=== PATIENT | male | born 1975 | race African-American/Black ===

== ENCOUNTER 2017-03-03 12:26 | Emergency (ER) | payer OTHER ==
[2017-03-03 12:29] VITALS: BP 134/77; PULSE 67; TEMP 98.3; BMI 31.5
[2017-03-03] MEDS ORDERED: diphenhydrAMINE HCL 25 MG CAPSULE (FP) PO ONE ×2 (12:49→12:54)
--- NOTE | 2017-03-03 12:54 | PDOC ---
History of Present Illness - General Chief Complaint: Rash Stated Complaint: BUMPS ON LT HAND Time Seen by Provider: 03/03/17 12:41 History Source: Patient Exam Limitations: No Limitations - History of Present Illness Initial Comments: 03/03/17 12:58 This is a 41-yr-old man with no significant past medical who presents today with pruritic rash on bilateral upper extremities since awaking this morning. he denies fevers, chills, pain or shortness of breath. he states he had an egg for breakfast and used his significant other's shampoo last night during shower. He denies changes in deodorant, soap, cologne, laundry detergent or fabric softeners. Timing/Duration: reports: this morning Severity: Yes: moderate Location: reports: extremities (bilateral upper) Respiratory Risk Factors: reports: no cause identified Associated Symptoms: reports: change in skin texture, rash. denies: fever, nasal congestion, petechiae, sore throat Past History - Past Medical History Allergies/Adverse Reactions: Allergies Allergy/AdvReac Type Severity Reaction Status Date / Time No Known Allergies Allergy Verified 03/03/17 12:29 Home Medications: Ambulatory Orders NK [No Known Home Medication] 03/03/17 Other medical history: NONE - Psycho/Social/Smoking Cessation Hx Anxiety: No Suicidal Ideation: No Smoking Status: No Smoking History: Never smoked Have you smoked in the past 12 months: No Number of Cigarettes Smoked Daily: 0 Hx Alcohol Use: Yes (SOCIAL) Drug/Substance Use Hx: No Substance Use Type: None Review of Systems - Review of Systems Able to Perform ROS?: Yes Is the patient limited Chinese proficient: No Constitutional: No: Symptoms Reported HEENTM: No: Symptoms Reported Respiratory: No: Symptoms reported Cardiac (ROS): No: Symptoms Reported ABD/GI: No: Symptoms Reported : No: Symptoms Reported Musculoskeletal: No: Symptoms Reported Integumentary: Yes: Rash Neurological: No: Symptoms reported *Physical Exam - Vital Signs Last Vital Signs Temp Pulse Resp BP Pulse Ox 98.3 F 67 18 134/77 99 03/03/17 12:26 03/03/17 12:26 03/03/17 12:26 03/03/17 12:26 03/03/17 12:26 - Physical Exam General Appearance: Yes: Appropriately Dressed. No: Apparent Distress HEENT: positive: EOMI, Normal ENT Inspection, Normal Voice Neck: positive: Trachea midline, Supple Respiratory/Chest: positive: Lungs Clear, Normal Breath Sounds. negative: Respiratory Distress, Accessory Muscle Use Cardiovascular: positive: Regular Rhythm, Regular Rate, S1, S2. negative: Edema , JVD, Murmur Gastrointestinal/Abdominal: positive: Normal Bowel Sounds, Soft. negative: Tender, Organomegaly Musculoskeletal: positive: Normal Inspection. negative: CVA Tenderness Extremity: positive: Normal Capillary Refill, Other (raised erythematous circular puritic lesions less than 0.5 centimeters in diameter covering bilateral from the antecubital extending through the hands. worse on dorsal surface of extremities. No lesions noted on palms.) Integumentary: positive: Rash (raised erythematous circular puritic lesions less than 0.5 centimeters in diameter covering bilateral from the antecubital extending through the hands. worse on dorsal surface of extremities. 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 he denies fevers, chills, pain or shortness of breath. he states he had an egg for breakfast and used his significant other's shampoo last night during shower. He denies changes in deodorant, soap, cologne, laundry detergent or fabric softeners. Likely from shampoo as he ate egg after onset of symptoms. Dx: contact dermatitis likely from change in shampoo. - benadryl 25mg now - discharge *DC/Admit/Observation/Transfer Diagnosis at time of Disposition: Contact dermatitis Qualifiers: Contact dermatitis type: irritant Contact dermatitis trigger: other chemical product Qualified Code(s): L24.5 - Irritant contact dermatitis due to other chemical products - Discharge Dispostion Disposition: HOME Condition at time of disposition: Stable Admit: No - Patient Instructions Printed Discharge Instructions: DI for Contact Dermatitis Additional Instructions: Apply hydrocortisone 1% cream to affected areas 3 times a day as needed. Take Benadryl as directed by appointment setter's instructions for itching as needed. Avoid using shampoo that is not your usual shampoo. Return to ER for any increased pain, worsening itching, fevers, cough or any other concerns. - Post Discharge Activity Work/School Note: Back to Work
== END 2017-03-03 13:24 | disposition home or self-care (01) ==
LOC: JER 12:26 → JERFT 12:26
DX: L24.5 Irritant contact dermatitis due to other chemical products (principal)
CPT/HCPCS: 99281-25

== ENCOUNTER 2017-03-05 08:54 | Emergency (ER) | payer OTHER ==
[2017-03-05 09:03] VITALS: BP 143/86; PULSE 66; TEMP 98.6; BMI 34.4
[2017-03-05] MEDS ORDERED: TRIAMCINOLONE ACET 40MG/1ML VIAL IM ONE (09:43)
--- NOTE | 2017-03-05 09:43 | PDOC ---
History of Present Illness - General Chief Complaint: Rash Stated Complaint: REVISIT Time Seen by Provider: 03/05/17 09:16 History Source: Patient Exam Limitations: No Limitations - History of Present Illness Initial Comments: 03/05/17 09:42 My chief complaint: Worsening rash on arms and hands History of present illness: This is a 41-yr-old man with no significant past medical who presents here today with worsening pruritic rash on bilateral upper extremities. nHe denies fevers, chills, pain or shortness of breath or difficulty breathing. He denies changes in deodorant, soap, cologne, laundry detergent or fabric softeners or medications. She was seen here on 03/03/2017 and was instructed to take Benadryl for itchiness and to apply hydrocortisone cream to rash. 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 Patient reports that area is pruritic especially when it is wet. Patient reports that last weekend he was in his backyard with his son playing does not know of any contact with any plants such as poison taylor poison sumac. Rash persist only on exposed area of arms and dorsal aspect of hands. 03/05/17 09:55 Timing/Duration: getting worse Severity: moderate (arms, dorsal hands) Past History - Past Medical History Allergies/Adverse Reactions: Allergies Allergy/AdvReac Type Severity Reaction Status Date / Time No Known Allergies Allergy Verified 03/05/17 08:59 Home Medications: Ambulatory Orders NK [No Known Home Medication] 03/03/17 - Immunization History Immunization Up to Date: Yes - Psycho/Social/Smoking Cessation Hx Anxiety: No Suicidal Ideation: No Smoking Status: No Smoking History: Never smoked Have you smoked in the past 12 months: No Number of Cigarettes Smoked Daily: 0 Hx Alcohol Use: No Drug/Substance Use Hx: No Substance Use Type: None Review of Systems - Review of Systems Able to Perform ROS?: Yes Constitutional: No: Symptoms Reported HEENTM: No: Symptoms Reported Respiratory: No: Symptoms reported Cardiac (ROS): No: Symptoms Reported ABD/GI: No: Symptoms Reported : No: Symptoms Reported Musculoskeletal: No: Symptoms Reported Integumentary: Yes: Pruritus, Rash (b/l arms, dorsal hand worsening since 03/03/17 ) Neurological: No: Symptoms reported *Physical Exam - Vital Signs Last Vital Signs Temp Pulse Resp BP Pulse Ox 98.6 F 66 18 143/86 99 03/05/17 09:01 03/05/17 09:01 03/05/17 09:01 03/05/17 09:01 03/05/17 09:01 - Physical Exam General Appearance: Yes: Appropriately Dressed HEENT: positive: Normal ENT Inspection Respiratory/Chest: positive: Lungs Clear, Normal Breath Sounds. negative: Chest Tender, Respiratory Distress Cardiovascular: positive: Regular Rhythm, Regular Rate, S1, S2 Integumentary: positive: Rash (linear slightly raised rash in some areas vesicular like, b/l arms, and dorsal hands) Neurologic: positive: Alert, Responsive Medical Decision Making - Medical Decision Making 03/05/17 09:57 This is a 41-yr-old man with no significant past medical who presents here today with worsening pruritic rash on bilateral upper extremities. nHe denies fevers, chills, pain or shortness of breath or difficulty breathing. He denies changes in deodorant, soap, cologne, laundry detergent or fabric softeners or medications. She was seen here on 03/03/2017 and was instructed to take Benadryl for itchiness and to apply hydrocortisone cream to rash. 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 Patient reports that area is pruritic especially when it is wet. Patient reports that last weekend he was in his backyard with his son playing does not know of any contact with any plants such as poison taylor poison sumac. Rash persist only on exposed area of arms and dorsal aspect of hands. Contact dermatitis most probably poison sumac Plan: Kenalog 40 mg IM now Claritin 10 mg by mouth now 03/05/17 10:06 *DC/Admit/Observation/Transfer Diagnosis at time of Disposition: Poison sumac - Discharge Dispostion Disposition: HOME Condition at time of disposition: Stable - Patient Instructions Additional Instructions: You may continue to take Benadryl as needed as directed by manufacture for itchiness at night you may also take Claritin 10 mg daily which is nonsedated to prevent itchiness during the day which she may purchase [id number] Return to emergency room if symptoms worsen or new symptoms develop Patient voiced understanding of discharge instructions and all questions were answered
[2017-03-05] MEDS ORDERED: TRIAMCINOLONE ACET 40MG/1ML VIAL ONE (09:45)
[2017-03-05] MEDS ORDERED: LORATADINE 10 MG TABLET PO ONE (09:54)
[2017-03-05] MEDS ORDERED: LORATADINE 10 MG TABLET ONE (09:59)
== END 2017-03-05 10:16 | disposition home or self-care (01) ==
LOC: JERFT 08:54
PROC: 3E023GC Introduction of Other Therapeutic Substance into Muscle, Percutaneous Approach (ICD-10-PCS; principal; 2017-03-05)
DX: L23.7 Allergic contact dermatitis due to plants, except food (principal)
CPT/HCPCS: 99281-25

== ENCOUNTER 2017-09-16 09:05 | Emergency (ER) | payer OTHER ==
[2017-09-16 09:21] VITALS: BP 137/77; PULSE 83; BMI 35.5
[2017-09-16] MEDS ORDERED: ACETAMINOPHEN 325 MG TABLET (FP) PO ONE (10:19)
--- NOTE | 2017-09-16 10:23 | PDOC ---
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 Patient has been in his usual state of good health, has no complaints other than the lightheadedness. Coworkers noticed some injected eyes, and they referred him to the ER. Review of systems is otherwise completely negative for any localizing source of infection. - Physicial Exam PE: 09/16/17 10:21 Noted to be febrile at triage 101. Vital signs otherwise normal. Well-appearing and ambulating, speaking full sentences Bilateral conjunctival injection without periorbital cellulitis, full range of motion, normal visual acuity Oropharynx clear, TMs clear Lungs clear, abdomen benign Neurologically intact - Medical Decision Making 09/16/17 10:22 Patient seen and evaluated with the resident. I agree with the overall evaluation, assessment, and management with the following summary of visit: Healthy 42-year-old male with fleeting episode of lightheadedness in the setting of fever. No red flags on history or physical exam, no localizing source on review of systems. Could be early viral process, well-appearing and hemodynamically stable. Antipyretics, check EKG Reassurance, understands return criteria. No indication for emergent workup at this time.
--- NOTE | 2017-09-16 10:25 | PDOC ---
History of Present Illness - General Chief Complaint: Lightheaded Stated Complaint: DIZZINESS Time Seen by Provider: 09/16/17 09:56 History Source: Patient Exam Limitations: No Limitations - History of Present Illness Initial Comments: 09/16/17 10:19 Patient is a 42M with no significant medical history, an employee in [employer], here today complaining of lightheadedness, fever and red eyes. He says that he started not feeling well this morning, and had one brief episode of lightheadedness while bending over a sick. He states that he has been in his usual state of health, but co-workers noticed red eyes. Found to be febrile at triage. Denies chest pain, shortness of breath, cough, nausea, vomiting. He has no lightheadedness now. Denies headache. Past History - Past Medical History Allergies/Adverse Reactions: Allergies Allergy/AdvReac Type Severity Reaction Status Date / Time No Known Allergies Allergy Verified 09/16/17 09:18 Home Medications: Ambulatory Orders NK [No Known Home Medication] 03/03/17 COPD: No DVT: No Dementia: No Diabetes: No - Immunization History Immunization Up to Date: Yes - Suicide/Smoking/Psychosocial Hx Smoking Status: No Smoking History: Never smoked Have you smoked in the past 12 months: No Number of Cigarettes Smoked Daily: 0 Information on smoking cessation initiated: No Hx Alcohol Use: No Drug/Substance Use Hx: No Substance Use Type: None Review of Systems - Review of Systems Comments:: 09/16/17 10:22 GENERAL/CONSTITUTIONAL: Positive for fever. No weakness. HEAD, EYES, EARS, NOSE AND THROAT: No change in vision. No ear pain or discharge. No sore throat. CARDIOVASCULAR: No chest pain or shortness of breath RESPIRATORY: No cough, wheezing, or hemoptysis. GASTROINTESTINAL: No nausea, vomiting, diarrhea or constipation. GENITOURINARY: No dysuria, frequency, or change in urination. SKIN: No rash NEUROLOGIC: No headache, loss of consciousness, or change in strength/sensation. ENDOCRINE: No increased thirst. No abnormal weight change HEMATOLOGIC/LYMPHATIC: No anemia, easy bleeding, or history of blood clots. ALLERGIC/IMMUNOLOGIC: No hives or skin allergy. *Physical Exam - Vital Signs Last Vital Signs Temp Pulse Resp BP Pulse Ox 101.0 F H 83 16 137/77 98 09/16/17 09:18 09/16/17 09:18 09/16/17 09:18 09/16/17 09:18 09/16/17 09:18 - Physical Exam Comments: 09/16/17 10:23 GENERAL: Awake, alert, and fully oriented, in no acute distress HEAD: No signs of trauma, normocephalic, atraumatic EYES: PERRLA, EOMI, sclera anicteric, conjunctiva red, vision 20/25 bilaterally ENT: Auricles normal inspection, hearing grossly normal, nares patent, oropharynx clear without exudates. Moist mucosa. Ears have excoriations bilaterally with small amount of dried blood. NECK: Normal ROM, supple, no lymphadenopathy, JVD, or masses LUNGS: No distress, speaks full sentences, clear to auscultation bilaterally HEART: Regular rate and rhythm, normal S1 and S2, no murmurs, rubs or gallops, peripheral pulses normal and equal bilaterally. EXTREMITIES: Normal inspection, Normal range of motion, no edema. No clubbing or cyanosis. NEUROLOGICAL: Cranial nerves II through XII grossly intact. Normal speech, normal gait, no focal sensorimotor deficits SKIN: Warm, Dry, normal turgor, no rashes or lesions noted. Medical Decision Making - Medical Decision Making 09/16/17 10:24 42M otherwise healthy here today with one episode of lightheadedness, fever and conjunctivitis. Vital signs notable for fever at triage, otherwise normal. Patient appears well, suspect viral etiology. Does not require emergent workup of fever. Will evaluate further with EKG. Will treat with tylenol. Will likely discharge. Patient says that he uses q tips to clear out ears, advised to stop. 09/16/17 10:51 EKG shows normal sinus rhythm, left axis deviation and LVH. Flipped t waves in III and aVF. No st elevations or depressions. Normal FL, QRS and QTc intervals. Will discharge with PCP follow up. *DC/Admit/Observation/Transfer Diagnosis at time of Disposition: Fever - Discharge Dispostion Disposition: HOME Condition at time of disposition: Good Admit: No - Referrals Referrals: Ulysses Dumont MD [Primary Care Provider] - - Patient Instructions Additional Instructions: You were seen today in the ED for a fever. Please return if you have any new, worsening or concerning symptoms. The EKG we did today was mildly abnormal. Please follow up with your primary care physician in the next 1-2 weeks. - Post Discharge Activity Forms/Work/School Notes: Back to Work
[2017-09-16] MEDS ORDERED: ACETAMINOPHEN 325 MG TABLET (FP) ONE (10:48)
[2017-09-16 11:04] VITALS: TEMP 100.4
--- NOTE | 2017-09-16 16:28 | EKG ---
Test Reason : Blood Pressure : / mmHG Vent. Rate : 073 BPM Atrial Rate : 073 BPM P-R Int : 186 ms QRS Dur : 104 ms QT Int : 350 ms P-R-T Axes : 013 -40 -15 degrees QTc Int : 385 ms NORMAL SINUS RHYTHM LEFT AXIS DEVIATION MODERATE VOLTAGE CRITERIA FOR LVH, MAY BE NORMAL VARIANT NONSPECIFIC T WAVE ABNORMALITY ABNORMAL ECG WHEN COMPARED WITH ECG OF 26-MAR-2011 18:06, INCOMPLETE RIGHT BUNDLE BRANCH BLOCK IS NO LONGER PRESENT T WAVE INVERSION NOW EVIDENT IN INFERIOR LEADS Confirmed by ALAN GERMAN MD ([id number]) on 09/16/2017 4:27:48 PM Referred By: Confirmed By:ALAN GERMAN MD
== END 2017-09-16 11:04 | disposition home or self-care (01) ==
LOC: JER 09:05
DX: R50.9 Fever, unspecified (principal); H10.33 Unspecified acute conjunctivitis, bilateral
CPT/HCPCS: 93005; 93010; 99282-25

== ENCOUNTER 2018-10-02 12:57 | Emergency (ER) | payer OTHER ==
[2018-10-02 13:02] VITALS: BP 124/76; PULSE 64; TEMP 97.6; BMI 37.1
[2018-10-02] MEDS ORDERED: KETOROLAC TROMETHAMINE 30 MG/1 ML VIAL IM ONE (13:30)
--- NOTE | 2018-10-02 13:34 | PDOC ---
History of Present Illness - General Chief Complaint: Pain Stated Complaint: SHARP SIDE PAIN Time Seen by Provider: 10/02/18 13:14 History Source: Patient Exam Limitations: No Limitations - History of Present Illness Initial Comments: 10/02/18 13:32 43 yo M w/ no sig PMHx comes in c/o sudden onset of L mid back pain which started after a sudden spin while doing dishes. NO other complaints today, no numbness/tingling. Pain does not radiate anywhere, no chest pain, no SOB, no cough, no rash, no recent URI, no burning/pain on urination, no headache, no neck pain, no lower back pain, no pain/numbness/tingling in extremities, no fever/chills, no NVD, no change in appetite, no prior h/o similar symptoms. Pt has not taken any meds for pain 10/02/18 13:35 10/02/18 13:38 Past History - Past Medical History Allergies/Adverse Reactions: Allergies Allergy/AdvReac Type Severity Reaction Status Date / Time No Known Allergies Allergy Verified 10/02/18 13:02 Home Medications: Ambulatory Orders Ibuprofen [Motrin -] 600 mg PO TID 3 Days #18 tablet 10/02/18 Methocarbamol [Robaxin-750] 750 mg PO TID 3 Days #15 tablet 10/02/18 COPD: No DVT: No Dementia: No Diabetes: No - Immunization History Immunization Up to Date: Yes - Suicide/Smoking/Psychosocial Hx Smoking Status: No Smoking History: Never smoked Have you smoked in the past 12 months: No Number of Cigarettes Smoked Daily: 0 Hx Alcohol Use: No Drug/Substance Use Hx: No Substance Use Type: None Review of Systems - Review of Systems Able to Perform ROS?: Yes Constitutional: No: Chills, Fever, Malaise, Night Sweats HEENTM: No: Eye Pain, Recent change in vision, Throat Pain Respiratory: No: Cough, Shortness of Breath Cardiac (ROS): No: Chest Pain, Palpitations, Chest Tightness ABD/GI: No: Diarrhea, Nausea, Vomiting, Abdominal cramping : No: Dysuria, Hematuria Musculoskeletal: Yes: Back Pain Integumentary: No: Rash Neurological: No: Headache, Numbness, Dizziness Psychiatric: No: Change in Appetite Endocrine: No: Unexplained Weight Loss *Physical Exam - Vital Signs Last Vital Signs Temp Pulse Resp BP Pulse Ox 97.6 F 64 18 124/76 100 10/02/18 13:00 10/02/18 13:00 10/02/18 13:00 10/02/18 13:00 10/02/18 13:00 - Physical Exam General Appearance: Yes: Nourished. No: Apparent Distress HEENT: positive: RUI, Normal ENT Inspection, Normal Voice. negative: Pale Conjunctivae, Scleral Icterus (R), Scleral Icterus (L) Neck: positive: Supple. negative: Decreased range of motion, Tender midline Respiratory/Chest: positive: Lungs Clear, Normal Breath Sounds. negative: Respiratory Distress, Accessory Muscle Use Cardiovascular: positive: Regular Rhythm, Regular Rate Gastrointestinal/Abdominal: positive: Normal Bowel Sounds, Soft. negative: Tender Musculoskeletal: positive: Normal Inspection, Muscle Spasm (R parathoracic area. No spinal midline tenderness). negative: CVA Tenderness, Decreased Range of Motion Extremity: positive: Normal Capillary Refill, Normal Inspection, Normal Range of Motion. negative: Tender, Pedal Edema Integumentary: positive: Normal Color, Dry. negative: Jaundice, Rash Neurologic: positive: Fully Oriented, Alert, Normal Mood/Affect Moderate Sedation - Procedure Monitoring Vital Signs: Procedure Monitoring Vital Signs Temperature 97.6 F 10/02/18 13:00 Pulse Rate 64 10/02/18 13:00 Respiratory Rate 18 10/02/18 13:00 Blood Pressure 124/76 10/02/18 13:00 O2 Sat by Pulse Oximetry (%) 100 10/02/18 13:00 Medical Decision Making - Medical Decision Making 10/02/18 13:37 43 yo M w/ muscle spasm in the back. WIll give toradol and discharge with motrin and a muscle relaxant PMD follow up Warm compresses and massages to the area Return for worsening/concerning symptoms Pt verbalizes understanding and agrees with plan *DC/Admit/Observation/Transfer Diagnosis at time of Disposition: Back muscle spasm - Discharge Dispostion Disposition: HOME Condition at time of disposition: Stable - Referrals Referrals: Ulysses Dumont MD [Primary Care Provider] - - Patient Instructions Printed Discharge Instructions: DI for Back Spasm Additional Instructions: You have a spasm of a muscle of your back. Take Warm baths, use warm compresses , do massages to the area as instructed. Follow up with PCP this week. Take motrin and robaxin for pain. Do not take robaxin if operating any kind of machinery, it can make you sleepy - Post Discharge Activity Forms/Work/School Notes: Back to Work
[2018-10-02] MEDS ORDERED: KETOROLAC TROMETHAMINE 30 MG/1 ML VIAL ONE (13:38)
== END 2018-10-02 13:47 | disposition home or self-care (01) ==
LOC: JERFT 12:57
PROC: 3E0233Z Introduction of Anti-inflammatory into Muscle, Percutaneous Approach (ICD-10-PCS; principal; 2018-10-02)
DX: M62.830 Muscle spasm of back (principal)
CPT/HCPCS: 99281-25

== ENCOUNTER 2019-01-05 07:13 | Emergency (ER) | payer OTHER | END 2019-01-05 09:15 | disposition home or self-care (01) | LOC: JER 07:13 ==

== ENCOUNTER 2021-06-30 12:41 | Emergency (ER) | payer OTHER ==
[2021-06-30 12:45] VITALS: BP 124/73; PULSE 84; TEMP 97.8; BMI 38.7
[2021-06-30] MEDS ORDERED: IBUPROFEN 400 MG TABLET (FP) PO ONE ×2 (12:59→13:18)
== END 2021-06-30 13:51 | disposition home or self-care (01) ==
LOC: JERFT 12:41
DX: M25.561 Pain in right knee (principal); X50.1XXA Overexertion from prolonged static or awkward postures, initial encounter
CPT/HCPCS: 99283-25

== ENCOUNTER 2022-07-14 12:12 | Emergency (ER) | payer OTHER ==
[2022-07-14 12:59] VITALS: BP 124/75; PULSE 59; RESP 20; TEMP 98.1; BMI 36.3
== END 2022-07-14 16:51 | disposition home or self-care (01) ==
LOC: JER 12:12 → JERFT 12:12
DX: M71.21 Synovial cyst of popliteal space [Baker], right knee (principal)
CPT/HCPCS: 93971-TC; 99283-25

== ENCOUNTER 2024-08-09 08:28 | Observation (INO) | payer OTHER ==
[2024-08-09 08:33] VITALS: BMI 37.1
[2024-08-09 09:45] LABS: BASO % 0.6 % (0-2.0); EOS % 1.6 % (0-4.5); HEMOGLOBIN 13.5 GM/dL (11.7-16.9); LYMPH % 43.5 % (8-40); MCH 28.8 pg (25.7-33.7); MCHC 32.8 g/dl (32.0-35.9); MEAN CELL VOLUME 87.6 fl (80-96); MEAN PLT VOLUME 6.9 fl (7.5-11.1); MONO % 8.5 % (3.8-10.2); NEUT % 45.8 % (42.8-82.8); PLATELET COUNT 198 10^3/uL (134-434); RBC 4.68 M/mm3 (4.00-5.60); RDW 13.4 % (11.9-15.9); WHITE BLOOD COUNT 4.5 K/mm3 (4.0-10.0)
[2024-08-09] MEDS ORDERED: ACETAMINOPHEN INJECTION 100 ML ONE (09:50)
[2024-08-09 09:54] LABS: INR 0.97 (0.83-1.09)
[2024-08-09 10:03] LABS: POTASSIUM 4.1 mmol/L (3.5-5.1)
[2024-08-09 10:05] LABS: ALBUMIN 3.6 g/dl (3.4-5.0); BLOOD UREA NITROGEN 15.2 mg/dL (7-18); CALCIUM 9.3 mg/dL (8.5-10.1); MAGNESIUM 1.8 mg/dL (1.8-2.4)
[2024-08-09] MEDS: ACETAMINOPHEN 1000 MG/100 ML BAG IVPB ONE ×2 (10:07→10:08)
[2024-08-09] MEDS: SODIUM CHLORIDE 1,000 ML IV STA (10:08)
[2024-08-09 10:09] LABS: CREATININE 1.2 mg/dL (0.55-1.3)
[2024-08-09 10:10] LABS: BILIRUBIN,TOTAL 0.3 mg/dL (0.2-1); TOT PROT 6.5 g/dl (6.4-8.2)
[2024-08-09 12:58] LABS: HIV INTERPRETATION NEGATIVE (NEGATIVE)
[2024-08-09 18:12] VITALS: RESP 16
[2024-08-09] MEDS ORDERED: ACETAMINOPHEN 325 MG TABLET (FP) PO PRN (23:14)
[2024-08-10 07:38] LABS: BASO % 0.6 % (0-2.0); EOS % 2.5 % (0-4.5); HEMATOCRIT 39.5 % (35.4-49); HEMOGLOBIN 13.5 GM/dL (11.7-16.9); LYMPH % 46.6 % (8-40); MCH 29.5 pg (25.7-33.7); MCHC 34.1 g/dl (32.0-35.9); MEAN CELL VOLUME 86.5 fl (80-96); MEAN PLT VOLUME 7.4 fl (7.5-11.1); NEUT % 41.3 % (42.8-82.8); PLATELET COUNT 194 10^3/uL (134-434); RBC 4.57 M/mm3 (4.00-5.60); RDW 13.2 % (11.9-15.9); WHITE BLOOD COUNT 5.1 K/mm3 (4.0-10.0)
[2024-08-10 07:44] LABS: POTASSIUM 4.2 mmol/L (3.5-5.1)
[2024-08-10 07:51] LABS: ALBUMIN 3.3 g/dl (3.4-5.0); BLOOD UREA NITROGEN 13.3 mg/dL (7-18)
[2024-08-10 07:52] LABS: CALCIUM 8.9 mg/dL (8.5-10.1)
[2024-08-10 07:53] LABS: BILIRUBIN,TOTAL 0.2 mg/dL (0.2-1); TOT PROT 5.8 g/dl (6.4-8.2)
[2024-08-10 07:55] LABS: CREATININE 0.9 mg/dL (0.55-1.3)
[2024-08-10 12:31] VITALS: BP 109/70; PULSE 68; TEMP 98.9
== END 2024-08-10 14:06 | disposition home or self-care (01) ==
LOC: JER 08:28 → JERBED 11:01 → J4W 17:01
PROVIDERS: ADMIT Internal Medicine; ATTEND Internal Medicine
PROC: 3E033GC Introduction of Other Therapeutic Substance into Peripheral Vein, Percutaneous Approach (ICD-10-PCS; principal; 2024-08-09)
DX: R94.31 Abnormal electrocardiogram [ECG] [EKG] (principal); R07.89 Other chest pain; I44.0 Atrioventricular block, first degree
CPT/HCPCS: 0241U-QW; 36415; 71046-TC-FY; 80053; 80061; 83036; 83735; 84153; 84443; 84484; 85025; 85610; 85730; 86803; 87389; 93005; 93010; 93306-TC; 99285-25; G0378; J0131